=== PATIENT | female | born 1995 | race Caucasian/White ===

== ENCOUNTER 2017-07-03 14:55 | Inpatient (IN) | payer OTHER, MEDICAID, SELFPAY ==
[2017-07-03] MEDS: Lactated Ringers 1,000 ML 50 ML IV ×2 (15:40→21:53)
[2017-07-03 15:49] VITALS: BMI 25.4
[2017-07-03] MEDS: Oxytocin 30 units/NS 500 ml 30 UNITS/500 ML IV.SOLN IV (16:00)
[2017-07-03 16:10] LABS: Hematocrit 32.6 % (37-47); Hemoglobin 10.5 g/dl (12.0-15.0); Mean Corp Hgb Conc 32.2 g/gl (32-36); Mean Corpuscular Hgb 26.7 pg (27.0-32.0); Mean Platelet Vol. 11.4 fl (6.2-12.0); Platelet Count 149 K/mm3 (150-450); RBC Distribution Width CV 15.8 % (11.6-14.6); RBC Distribution Width SD 47.1 fl (35.1-43.9); Red Blood Count 3.93 M/mm3 (4.2-5.4); White Blood Count 9.4 K/mm3 (4.4-11.0)
[2017-07-03 16:13] LABS: Scan Indicated on CBC? Y/N NO
--- NOTE | 2017-07-03 19:17 | PCM.HP.OB ---
History Date of Admission: 07/03/17 Final NICHOLAS: 06/28/17 Final NICHOLAS Source: US <20 weeks Gestational age: 40 Weeks and 5 Days History of this : 21-year-old 1 para 0 female admitted at 40-5/7 weeks with spontaneous rupture of membranes. She denies any regular contractions. No vaginal bleeding. Good movement. Regnancy was uncomplicated to date other than she had an abnormal 1 hour GTT but she had a normal 3 hour. Past medical history : of abnormal Pap smear and right breast fibroadenoma Surgical history: wisdom tooth extraction Family medical history:noncontributory Allergies No Known Allergies Allergy (Verified 02/24/13 18:52) Current Medications Acetaminophen (Tylenol) 325 - 650 mg PO Q4H PRN PRN PRN Reason: PAIN OR FEVER >100.4F Al Hydroxide/Mg Hydroxide (Mylanta Ii) 15 - 30 ml PO Q4H PRN PRN PRN Reason: INDIGESTION Citric Acid/Sodium Citrate (Bicitra) 30 ml PO UD PRN Lactated Ringer's () 1,000 mls @ 50 mls/hr IV .Q20H [facility] Last Admin: 07/03/17 15:40 Dose: 50 mls/hr Oxytocin/Sodium Chloride () 30 units in 500 mls @ 1 mls/hr IV .Q500H [facility] Last Admin: 07/03/17 16:00 Dose: 1 mls/hr Nalbuphine HCl (Nubain) 5 - 10 mg IV Q3H PRN PRN PRN Reason: PAIN (4-10/10) Ondansetron HCl (Zofran) 4 mg IV Q8H PRN PRN PRN Reason: NAUSEA Promethazine HCl (Phenergan (Ll)) 6.25 - 12.5 mg IV Q4H PRN PRN; Protocol PRN Reason: IF NAUSEA PERSISTS Sodium Chloride () 5 - 15 ml IV UD [facility] Last Admin: 07/03/17 19:00 Dose: Not Given Smoking Status: Former smoker Alcohol: None Drug Use: none Number of Fetus(es): 1 Review of Systems Constitutional: Denies: Chills, Fever Cardiovascular: Denies: Chest Pain Respiratory: Denies: Cough Gastrointestinal: Denies: Abdominal Pain Skin: Denies: Rash Physical Exam General: Alert, Cooperative, No apparent distress Cardiovascular: Regular rate Lungs: Normal air movement Abdomen: Soft, Non-Distended, Gravid, Appropriate for Gestational Age Extremities:: No edema Estimated gestational size: Appropriate for gestational size Presentation: Cephalic Cervix Dilation (cm): 2.5 - medium consistency, mid position Station: -2 Effacement (%): 80 Assessment/Plan 21-year-old 1 para 0 at 40-5/7 weeks gestation with premature rupture of membranes 1. Estimated weight is less than 4500 g and pelvis is clinically adequate to expect vaginal delivery. Patient tires to attempt labor without an epidural. We discussed pain relief options. 2. premature rupture membranes -will induce labor with Pitocin as needed and titrate to labor
--- NOTE | 2017-07-03 19:25 | HP.PCM_ITS ---
History Date of Admission: 07/03/17 Final NICHOLAS: 06/28/17 Final NICHOLAS Source: US <20 weeks Gestational age: 40 Weeks and 5 Days History of this : 21-year-old 1 para 0 female admitted at 40-5/7 weeks with spontaneous rupture of membranes. She denies any regular contractions. No vaginal bleeding. Good movement. Regnancy was uncomplicated to date other than she had an abnormal 1 hour GTT but she had a normal 3 hour. Past medical history : of abnormal Pap smear and right breast fibroadenoma Surgical history: wisdom tooth extraction Family medical history:noncontributory Allergies No Known Allergies Allergy (Verified 02/24/13 18:52) Current Medications Acetaminophen (Tylenol) 325 - 650 mg PO Q4H PRN PRN PRN Reason: PAIN OR FEVER >100.4F Al Hydroxide/Mg Hydroxide (Mylanta Ii) 15 - 30 ml PO Q4H PRN PRN PRN Reason: INDIGESTION Citric Acid/Sodium Citrate (Bicitra) 30 ml PO UD PRN Lactated Ringer's () 1,000 mls @ 50 mls/hr IV .Q20H [facility] Last Admin: 07/03/17 15:40 Dose: 50 mls/hr Oxytocin/Sodium Chloride () 30 units in 500 mls @ 1 mls/hr IV .Q500H [facility] Last Admin: 07/03/17 16:00 Dose: 1 mls/hr Nalbuphine HCl (Nubain) 5 - 10 mg IV Q3H PRN PRN PRN Reason: PAIN (4-10/10) Ondansetron HCl (Zofran) 4 mg IV Q8H PRN PRN PRN Reason: NAUSEA Promethazine HCl (Phenergan (Ll)) 6.25 - 12.5 mg IV Q4H PRN PRN; Protocol PRN Reason: IF NAUSEA PERSISTS Sodium Chloride () 5 - 15 ml IV UD [facility] Last Admin: 07/03/17 19:00 Dose: Not Given Smoking Status: Former smoker Alcohol: None Drug Use: none Number of Fetus(es): 1 Review of Systems Constitutional: Denies: Chills, Fever Cardiovascular: Denies: Chest Pain Respiratory: Denies: Cough Gastrointestinal: Denies: Abdominal Pain Skin: Denies: Rash Physical Exam General: Alert, Cooperative, No apparent distress Cardiovascular: Regular rate Lungs: Normal air movement Abdomen: Soft, Non-Distended, Gravid, Appropriate for Gestational Age Extremities:: No edema Estimated gestational size: Appropriate for gestational size Presentation: Cephalic Cervix Dilation (cm): 2.5 - medium consistency, mid position Station: -2 Effacement (%): 80 Assessment/Plan 21-year-old 1 para 0 at 40-5/7 weeks gestation with premature rupture of membranes 1. Estimated weight is less than 4500 g and pelvis is clinically adequate to expect vaginal delivery. Patient tires to attempt labor without an epidural. We discussed pain relief options. 2. premature rupture membranes -will induce labor with Pitocin as needed and titrate to labor
[2017-07-04] MEDS: Lactated Ringers 1,000 ML 50 ML IV ×2 (01:30→04:15)
[2017-07-04] MEDS: Ondansetron 4 MG/2 ML Vial IV (04:10)
[2017-07-04] MEDS: Oxytocin 30 units/NS 500 ml 30 UNITS/500 ML IV.SOLN 334 UNITS IV (05:15)
[2017-07-04] MEDS: Oxytocin 30 units/NS 500 ml 30 UNITS/500 ML IV.SOLN 167 UNITS IV (05:35)
--- NOTE | 2017-07-04 05:40 | PCM.OB.VAG ---
Vaginal Delivery Maternal Presentation: Spontaneous Rupture of Membranes Method of Induction: Pitocin Medical Reason for Induction: Premature Rupture of Membranes Amniotic Membrane Rupture Type: Spontaneous Amniotic Fluid Description: Clear - then terminal meconium at delivery Final NICHOLAS: 06/28/17 Final NICHOLAS Source: US <20 weeks Gestational age: 40 Weeks and 6 Days Date of Procedure: 07/04/17 Pre-Operative Diagnosis: labor Post-Operative Diagnosis: same + mild shoulder dystocia and terminal meconium Surgery/ Procedure Performed: Spontaneous Vaginal Delivery Type of Anesthesia: Epidural Description of Procedure: A vigorous male was delivered ASIM over a second-degree perineal laceration. There is a mild shoulder dystocia. When the shoulders did not deliver immediately, the patient's legs were repositioned in a modified Cristian. I attempted quickly to deliver the anterior posterior shoulder. Neither delivered. Suprapubic pressure was then given. I rotated the anterior shoulder slightly forward and then the anterior shoulder delivered with gentle traction in the posterior shoulder delivered easily. The entire episode between delivery of the head and the shoulders with 60 seconds. The Pitocin infusion was initiated for active management of the third stage. The cord was clamped and cut immediately due to the presence of thick meconium-stained fluid. The baby was making respiratory effort but was not immediately vigorous so he was transported to the isolette for evaluation and stimulation. The was attended to by the waiting nursing staff. The patient care associate was called in. By the time she arrived the infant was vigorous. Apgars were 8 and 9. The placenta was delivered spontaneously and intact. The cervix and vagina were intact. The second-degree perineal laceration was repaired with 3-0 Vicryl suture in a running standard fashion. Sponge and needle counts were correct. A vaginal sweep was completed by me. Presentation: ASIM Placental Delivery Description: Spontaneous Placenta Disposition: [facility] Cord Vessel Description: 3 Vessels Cord Entanglement: None Drain: Resendez to straight drain Estimated Blood Loss: 450 A gender: Male (1 minute): 8 (5 minute): 9 Episiotomy Description: None Laceration: 2nd degree Medications given after delivery: IV Pitocin Complications: None
[2017-07-04] MEDS: 0.9% Saline Lock 10 ML Syringe IV (06:40)
[2017-07-04 08:35] VITALS: BP 118/75; PULSE 96; RESP 16; TEMP 36.3; O2SAT 100
[2017-07-04 12:00] VITALS: BP 111/72; PULSE 90; RESP 18; TEMP 36.2; O2SAT 100
[2017-07-04 16:21] VITALS: BP 119/66; PULSE 94; RESP 16; TEMP 36.4; O2SAT 99
--- NOTE | 2017-07-04 17:42 | NURSING ---
1600 While rounding, Mom has been doing a great job with feedings independently. Mom requesting an electric pump and is to be calling her insurance. Encouraged to call so we can observe latching. Bryan MANCIA
[2017-07-04 19:50] VITALS: BP 129/77; PULSE 69; RESP 16; TEMP 36.6; O2SAT 97
[2017-07-04] MEDS: Naproxen 250 MG Tablet PO (19:59)
[2017-07-04] MEDS: Dibucaine 30 GM Tube 1 APPLIC TOPICAL (21:48)
[2017-07-05 00:02] VITALS: BP 99/57; PULSE 60; RESP 16; TEMP 36.3; O2SAT 97
[2017-07-05 04:15] VITALS: BP 98/54; PULSE 60; RESP 16; TEMP 36.8; O2SAT 97
[2017-07-05 05:12] LABS: Hematocrit 24.1 % (37-47); Hemoglobin 7.8 g/dl (12.0-15.0); Mean Corp Hgb Conc 32.4 g/gl (32-36); Mean Corpuscular Hgb 27.4 pg (27.0-32.0); Mean Corpuscular Volume 84.6 fL (81-99); Mean Platelet Vol. 11.2 fl (6.2-12.0); Platelet Count 138 K/mm3 (150-450); RBC Distribution Width SD 47.1 fl (35.1-43.9); Red Blood Count 2.85 M/mm3 (4.2-5.4); White Blood Count 15.1 K/mm3 (4.4-11.0)
[2017-07-05 05:13] LABS: Scan Indicated on CBC? Y/N NO
--- NOTE | 2017-07-05 08:42 | PCM.PN.OB ---
Subjective: pain well controlled, average lochia, working on - Physical Exam General: Alert, Cooperative, No apparent distress Abdomen: Soft, Non-Distended Extremities: Edema - 1+ Vital Signs Temp Pulse Resp BP Pulse Ox 98.3 F 60 16 98/54 L 97 07/05/17 04:15 07/05/17 04:15 07/05/17 04:15 07/05/17 04:15 07/05/17 04:15 Oxygen Delivery Method Room Air Weight: 65.2 kg Body Mass Index (BMI) 25.4 Intake and Output for Last 24 Hours 07/03/17 07/04/17 07/05/17 23:59 23:59 23:59 Intake Total 4323 / 4323 Output Total 200 / 200 2850 / 2850 Balance -200 / -200 1473 / 1473 Laboratory Tests Past 24 Hrs 07/05/17 04:45 WBC 15.1 H RBC 2.85 L Hgb 7.8 L Hct 24.1 L MCV 84.6 MCH 27.4 MCHC 32.4 RDW 16.0 H RDW Differential 47.1 H Plt Count 138 L MPV 11.2 Assessment/Plan PPD#1 doing well working on
[2017-07-05 09:10] VITALS: BP 102/59; PULSE 66; RESP 16; TEMP 36.1
[2017-07-05] MEDS: Naproxen 250 MG Tablet PO (09:10)
[2017-07-05 13:30] VITALS: BP 102/58; PULSE 59; TEMP 36.2
[2017-07-05 20:05] VITALS: BP 125/61; PULSE 58; RESP 16; TEMP 36.2; O2SAT 99
[2017-07-06 02:55] VITALS: BP 112/70; PULSE 60; RESP 16; TEMP 36.2
[2017-07-06 09:10] VITALS: BP 107/72; PULSE 64; RESP 20; TEMP 36.2
[2017-07-06] MEDS: Naproxen 250 MG Tablet PO (09:28)
--- NOTE | 2017-07-06 10:14 | PCM.PN.OB ---
Subjective: pain well controlled, average lochia. Had BM - Physical Exam General: Alert, Cooperative, No apparent distress Vital Signs Temp Pulse Resp BP Pulse Ox 97.1 F L 60 16 112/70 99 07/06/17 02:55 07/06/17 02:55 07/06/17 02:55 07/06/17 02:55 07/05/17 20:05 Oxygen Delivery Method Room Air Weight: 65.2 kg Body Mass Index (BMI) 25.4 Intake and Output for Last 24 Hours 07/04/17 07/05/17 07/06/17 23:59 23:59 23:59 Intake Total 4323 / 4323 Output Total 2850 / 2850 Balance 1473 / 1473 Assessment/Plan PPD#2 ready for d/c and doing well
--- NOTE | 2017-07-06 10:16 | DCINST_ITS ---
Discharge Diet: No Restrictions Discharge Activity: Return to Normal Activity, May not drive while taking narcotic pain medications., May Shower May resume sexual activity in: 4-6 weeks Additional Activity Instructions:: Nothing in the vagina for 4-6 weeks. You may return to work/school in 6 weeks. Call your doctor if your incision/area has: Continuous Slow Oozing, Sudden Increased Bleeding, Increased Pain/ Swelling, Increased Redness, Foul Smelling Discharge Additional Instructions: If you experience any of the following, contact your healthcare provider. * Bleeding that soaks a pad every hour for 2 hours * Fever 100.4 or higher * Unrelieved incision or abdominal pain * Swelling, redness, discharge or bleeding from your incision or episiotomy site * Your incision begins to separate * Problems urinating (including inability to urinate or burning while urinating) . * Visual changes * Severe headache * Flu-like symptoms * Pain or redness in one of both of your breasts * Pain, warmth, tenderness or swelling in your legs, especially the calf area * Frequent nausea and vomiting * Symptoms of depression or anxiety If you experience any of the following, call 911 or go to the nearest Emergency Room. * Chest pain * Problems breathing * Seizure activity * Partial or complete paralysis of a body part, slurred speech, weakness or drooping of the face, or a sudden inability to walk or hold your balance Allergies/Adverse Reactions: Allergies No Known Allergies Allergy (Verified 02/24/13 18:52) Medications to take at Discharge Docosahexanoic Acid [ Dha] 07/03/17 Ibuprofen [Motrin] 600 mg PO Q6H PRN #60 tablet 07/06/17 The following prescriptions were given: Ibuprofen [Motrin] 600 mg PO Q6H PRN #60 tablet PRN Reason: Pain Please Follow Up With: Gissel Cristobal MD - [phone] When: Call to make an appointment with your doctor in 6 weeks. If you had elevated Blood Pressure or 4th degree laceration you will need to be seen in 2 weeks. Primary Care Physician: Care Physician,No Primary [Primary Care Provider] -
[2017-07-06 14:00] VITALS: BP 108/64; PULSE 64; TEMP 36.2
== END 2017-07-06 14:15 | disposition home or self-care (01) | DRG 775 ==
PROVIDERS: Admitting Provider Obstetrics & Gynecology; Visit Provider Obstetrics & Gynecology
DX: O42.92 Full-term premature rupture of membranes, unspecified as to length of time between rupture and onset of labor (principal); O66.0 Obstructed labor due to shoulder dystocia; O70.1 Second degree perineal laceration during delivery; O77.0 Labor and delivery complicated by meconium in amniotic fluid; Z87.891 Personal history of nicotine dependence; Z3A.40 40 weeks gestation of pregnancy; Z37.0 Single live birth
CPT/HCPCS: 59025; 59050; 85027; 86850; 86900; 99218; J7120; A4216; G0378; J2405

== ENCOUNTER 2017-12-07 06:47 | Observation (INO) | payer OTHER, MEDICAID, SELFPAY ==
[2017-12-07] VITALS (12 sets, daily range): BP systolic 91–112; BP diastolic 49–72; PULSE 56–89; RESP 16–18; TEMP 37–37.7; O2SAT 96–99; BMI 18.0; BMI 19.2; BMI 18.1
--- NOTE | 2017-12-07 07:35 | APP_PTH ---
PATIENT: ROCKY AMIN LOC: [facility] U#:[id number] AGE/SX: 22/F ROOM: [facility]321 RE12/07/[address]: Dr. Viridiana Guerrero MD : 1995 BED: 1 DIS: 12/08/2017 SPEC #: [id number] RECD: 12/08/17 10:20 STATUS: CARMINA REQ #: [id number] ANGELO: 12/07/17 07:[address]: Viridiana Guerrero DEPT: SURGICAL PATHOLOGY RECD BY: Jayden Ordonez ENTERED: 12/08/17 11:21 SP TYPE: APPENDIX OT DR: No Primary Care Phys Tissues: Appendix, NOS Procedures: Surgery Specimen Level III HEADER OPERATION: Laparoscopic appendectomy PRE-OP DIAGNOSIS: Acute appendicitis TISSUE SUBMITTED: Appendix MICROSCOPIC DIAGNOSIS Appendix: Acute appendicitis and periappendicitis. SJ:jak 12/11/17 MICROSCOPIC DESCRIPTION Slides are reviewed. GROSS DESCRIPTION Received is one container labeled with the patient's name and designated appendix. The specimen consists of a vermiform appendix measuring 7 cm in length and 1 cm in average diameter. No gross perforations are evident. Sections reveal fecal material. Benzene [employer] Utility Operator sections are submitted in one cassette. / AM:jak 12/08/17 TC:2 CPT: 37221
--- NOTE | 2017-12-07 08:02 | CT_ITS ---
STUDY: CT ABDOMEN AND PELVIS WITH CONTRAST REASON FOR EXAM: Female, 22 years old. Right lower quadrant abdominal pain. RADIATION DOSAGE (If Supplied By Facility): CTDIvol = ( 7.36 ) mGy, DLP = ( 219.62 ) mGycm TECHNIQUE: Transaxial images were obtained from the dome of the diaphragm to the symphysis pubis with oral contrast. 80 ml of Isovue 300 contrast was administered. Sagittal and coronal images were reconstructed. Individualized dose optimization techniques were used for this CT. COMPARISON: Prior comparison studies are not available for review at this time. FINDINGS: The visualized lung bases are unremarkable. The visualized portions of the heart are within normal limits. Normal liver. Normal gallbladder and extrahepatic biliary system. There is mild splenomegaly. Normal pancreas. Normal bilateral adrenal glands. Normal right kidney. Normal left kidney. Normal visualized stomach. There is no evidence for dilated bowel, ascites or pneumoperitoneum. The small bowel has a normal appearance. Enteric contrast is visible throughout the colon. There is non-visualization of the appendix. Normal abdominal aorta. There is venous distention of the inferior vena cava (IVC). Normal retroperitoneum. Normal urinary bladder. Normal visualized uterus. Uterus appears retroflexed. Normal abdominal wall. Normal osseous structures. CT/Abdomen/Pelvis WITH Contrast IMPRESSION: No CT evidence of acute intra-abdominal disease. Electronically Signed: Heidy De Jesus MD at 9:39 EDT , Service support ,
[2017-12-07 08:03] LABS: ALB/GLOB Ratio 1.1 RATIO (0.9-2.4); AST(SGOT) 19 U/L (15-37); Alanine Aminotransfer ALT/SGPT 23 U/L (13-56); Alkaline Phosphatase 99 U/L (45-117); Anion Gap 11 (5-15); BUN 13 mg/dL (7-18); BUN/Creat Ratio 18.6 RATIO (10-20); Calcium,Total 8.8 mg/dL (8.5-10.1); Chloride 104 mmol/L (98-107); EST Glomerular Filtration Rate 109 mL/min (>60); Est Glom Filt Rate - Afr Amer 132 mL/min (>60); Globulin 3.5 g/dL (2.2-4.2); Glucose 82 mg/dL (74-106); Lipase 103 U/L (73-393); Potassium 3.9 mmol/L (3.5-5.1); Protein, Total 7.5 g/dL (6.4-8.2); Sodium Level 139 mmol/L (136-145)
--- NOTE | 2017-12-07 08:03 | ED.RN ---
see down time down charting for patient care
[2017-12-07 08:16] LABS: Red Blood Cells-Urine 0 SEEN /hpf (0-5)
[2017-12-07 08:17] LABS: Internal QC Validated? YES +Cl - CLEAR BKGD; Pregnancy, Urine Negative Negative
[2017-12-07 08:18] LABS: Color, Urine Yellow (Yellow); Glucose, Dipstick NEGATIVE (Normal); Urine Bilirubin Dipstick Negative (Negative); Urine Clarity Clear (Clear)
[2017-12-07 08:19] LABS: Ketone-Dipstick 150 mg/dl (Negative); Leukocyte Esterase-Dipstick Negative /ul (Negative); Nitrite-Dipstick Negative (Negative); Occult Blood-Urine Negative /ul (Negative); Protein-Dipstick Negative (Negative); Specific Gravity, Urine 1.015 (1.002-1.030); Squamous Epithelial Cells - UA 0-5 SEEN /hpf (5-10); Urine Urobilinogen Normal (Normal); White Blood Cells 0-5 SEEN /hpf (0-5)
[2017-12-07 08:20] LABS: Bacteria 2+ /hpf (None Seen); Mucous, Urine 1+ /hpf (<or=2+)
--- NOTE | 2017-12-07 08:31 | ED.DCSUM_ITS ---
- ER Visit Summary Date of Service: 12/07/17 Chief Complaint: Abdominal pain History of Present Illness: The patient is a 22 F with abdominal pain that started 8 hours ago. No fever or chills. No chest pain shortness of breath. She did have an upper respiratory infection about 3 days ago. Pain is described as achy. She does not have any nausea vomiting or diarrhea with this. No vaginal bleeding. In fact she has not had any normal menstrual cycle , she is 5 months and nursing. Physical Examination: Not appear in acute distress. Moist mucous membranes, no obvious facial deformity No C-spine tenderness supple neck. Regular rate and rhythm without any obvious murmurs Clear lungs bilaterally speaking in full sentences without any obvious respiratory distress Abdomen soft most of the tenderness is right lower quadrant, no obvious guarding or rebound. There is no pelvic pain. Moves all extremities without any difficulty or pain. Skin does not show any obvious rashes or lesions, no trauma. Alert oriented ?3 with no gross focal deficit Emergency Department Course and Treatment: Patient has a normal white count. She has a normal CT of the abdomen and pelvis with p.o. and IV contrast. I reevaluated her, she still has some right lower quadrant pain, it is not pelvic it is mostly in the abdomen. She has no guarding or rebound. I told her that there is still a possibility of early appendicitis and she needs a repeat evaluation in the next 12-24 hours, however sooner if she has fever chills or worsening pain. She understands this, she has no PCP I will refer her, however I told her it is prudent to come back to the emergency department she understands that and localizes it back to me. Addendum: Had a call from the radiologist, indeed it is an acute appendicitis. Zosyn was given and patient will be admitted for surgery. Disposition: Admit 12-24 for surgery Impression: Appendicitis This note was generated with [employer] dictation software. It may contain incorrect words, spelling, and punctuation that were not noted in review of the chart prior to signing ED Disposition - Plan for ED Patient: Disposition: Home or Assisted Living Chief Complaint: Abd Pain Diagnosis: Abdominal pain Instructions: ED Abdominal Pain Poss Appendx Nb Referrals: Howard Garcia MD [[facility]] - 3-5 Days Additional Instructions: You Need a repeat abdominal evaluation in the next 12-24 hours. If you have fever chills or worsening symptoms need to return to the emergency department sooner.
[2017-12-07 09:08] LABS: Absolute Lymphocyte Count 1.35 X10^3/ul (0.83-4.51); Absolute Neutrophil Count 4.6 X10^3/uL (2.0-7.7); Basophil# 0.01 X10^3/uL; Basophil% 0.1 % (0-1); Eosinophil# 0.06 X10^3/uL; Eosinophils% 0.9 % (0-5); Hematocrit 40.9 % (37-47); Hemoglobin 13.4 g/dl (12.0-15.0); Lymphocyte # 1.35 X10^3/ul (4.0); Mean Corp Hgb Conc 32.8 g/gl (32-36); Mean Corpuscular Hgb 26.7 pg (27.0-32.0); Mean Corpuscular Volume 81.5 fL (81-99); Monocyte# 0.72 X10^3/uL; Monocyte% 10.7 % (0-10); Neutrophil % 68.3 % (47-70); Platelet Count 165 K/mm3 (150-450); RBC Distribution Width CV 16.3 % (11.6-14.6); RBC Distribution Width SD 49.3 fl (35.1-43.9); Red Blood Count 5.02 M/mm3 (4.2-5.4); White Blood Count 6.7 K/mm3 (4.4-11.0)
[2017-12-07 09:09] LABS: POSITIVE COUNT NO; POSITIVE DIFFERENTIAL NO; POSITIVE MORPHOLOGY NO
--- NOTE | 2017-12-07 10:01 | ED.VISSUMM ---
- ER Visit Summary Date of Service: 12/07/17 Chief Complaint: [] History of Present Illness: The patient is a 22 F [] Physical Examination: [] Test Results: [] Emergency Department Course and Treatment: [] Treatment Plan: [] Disposition: [] Impression: [] This note was generated with [employer] dictation software. It may contain incorrect words, spelling, and punctuation that were not noted in review of the chart prior to signing ED Disposition - Plan for ED Patient: Disposition: [facility] Chief Complaint: Abd Pain Diagnosis: Abdominal pain Instructions: ED Abdominal Pain Poss Appendx Nb Referrals: Howard Garcia MD [[facility]] - 3-5 Days Additional Instructions: You Need a repeat abdominal evaluation in the next 12-24 hours. If you have fever chills or worsening symptoms need to return to the emergency department sooner.
--- NOTE | 2017-12-07 13:02 | PCM.HP.STD ---
History of Present Illness Date of Admission: 12/07/17 Chief Complaint: Acute appendicitis The patient is a 22 year old F presented to the ER due to abdominal pain started yesterday at 2-3 PM. Patient states previous to that about 2 days ago she did have a fever of 102 which went away and she had no abdominal pain at that time. But she did go to urgent care and was sent home. She did discuss her abdominal pain with urgent care and they recommended her to go to the ER. Initially patient CT abdomen pelvis was not noted to have a dilated appendix for acute appendicitis however this was discussed with Dr. Tripp and he agreed that looked like acute appendicitis. Patient was subsequently called back to the ER. Patient's white blood count was within normal limits, denies nausea or vomiting loss had a small bowel movement yesterday last time she ate was yesterday per the patient. Denies ever having similar pain like this before-she rates the pain prior to coming to the ER 7 out of 10, which initially was across her lower abdomen and has localized now in the right lower quadrant. Patient currently is getting Zosyn IV in the ER. Past Medical History Allergies No Known Allergies Allergy (Verified 02/24/13 18:52) Home Medications: Ambulatory Orders Medication Instructions Recorded Docosahexanoic Acid [ Dha] 07/03/17 Ibuprofen [Motrin] 600 mg PO Q6H PRN #60 tablet 07/06/17 Smoking Status: Former smoker Review of Systems Constitutional: Reports: Anorexia, Fever - 2 days ago none recent Eyes: Denies: Blurred vision HEENT: Denies: Difficulty Swallowing Cardiovascular: Denies: Chest Pain Respiratory: Denies: Shortness of breath at rest Gastrointestinal: Reports: Abdominal Pain. Denies: Nausea, Vomiting Genitourinary: Denies: Dysuria VTE Information - Inpt Only VTE Present on Admission: Yes VTE Mechan Device Prophylaxis: SCD's VTE Pharm Prophylaxis ordered?: No Reason prophylaxis not ordered:: Treatment Not Indicated - Physical Exam General: Alert, Oriented x3, Cooperative, No apparent distress HEENT: Atraumatic, Normocephalic Lungs: Clear to auscultation Cardiovascular: Regular rate, Regular Rhythm Abdomen: Soft, Non-Distended, Tender - Tender in the right lower quadrant no guarding or rebound Extremities: No clubbing, No cyanosis, No edema Vital Signs Temp Pulse Resp BP Pulse Ox 99.9 F H 79 16 111/71 97 12/07/17 12:15 12/07/17 12:15 12/07/17 12:15 12/07/17 12:15 12/07/17 12:15 Oxygen Delivery Method Room Air Weight: 102 lb Body Mass Index (BMI) 18.0 Laboratory Tests Past 24 Hrs 12/07/17 12/07/17 12/07/17 06:30 07:15 07:19 WBC 6.7 RBC 5.02 Hgb 13.4 Hct 40.9 MCV 81.5 MCH 26.7 L MCHC 32.8 RDW 16.3 H RDW Differential 49.3 H Plt Count 165 MPV 11.0 Immature Gran % (Auto) 0.000 Neut % (Auto) 68.3 Lymph % (Auto) 20.0 [place] % (Auto) 10.7 H Eos % (Auto) 0.9 Baso % (Auto) 0.1 Absolute Neuts (auto) 4.6 Absolute Lymphs (auto) 1.35 Total Counted Not Reportable Sodium 139 Potassium 3.9 Chloride 104 Carbon Dioxide 24.0 Anion Gap 11 BUN 13 Creatinine 0.70 Est GFR (MDRD) Af Amer 132 Est GFR (MDRD) Non-Af 109 BUN/Creatinine Ratio 18.6 Glucose 82 Calcium 8.8 Total Bilirubin 1.00 AST 19 ALT 23 Alkaline Phosphatase 99 Total Protein 7.5 Albumin 4.0 Globulin 3.5 Albumin/Globulin Ratio 1.1 Lipase 103 Urine Color Urine Clarity Urine pH Ur Specific [place] Urine Protein Urine Glucose (UA) Urine Ketones Urine Occult Blood Urine Nitrite Urine Bilirubin Urine Urobilinogen Ur Leukocyte Esterase Urine RBC Urine WBC Ur Squamous Epith Cells Urine Bacteria Urine Mucus Urine Test Negative 12/07/17 07:25 WBC RBC Hgb Hct MCV MCH MCHC RDW RDW Differential Plt Count MPV Immature Gran % (Auto) Neut % (Auto) Lymph % (Auto) [place] % (Auto) Eos % (Auto) Baso % (Auto) Absolute Neuts (auto) Absolute Lymphs (auto) Total Counted Sodium Potassium Chloride Carbon Dioxide Anion Gap BUN Creatinine Est GFR (MDRD) Af Amer Est GFR (MDRD) Non-Af BUN/Creatinine Ratio Glucose Calcium Total Bilirubin AST ALT Alkaline Phosphatase Total Protein Albumin Globulin Albumin/Globulin Ratio Lipase Urine Color Yellow Urine Clarity Clear Urine pH 6.0 Ur Specific [place] 1.015 Urine Protein Negative Urine Glucose (UA) NEGATIVE Urine Ketones 150 H Urine Occult Blood Negative Urine Nitrite Negative Urine Bilirubin Negative Urine Urobilinogen Normal Ur Leukocyte Esterase Negative Urine RBC 0 SEEN Urine WBC 0-5 SEEN Ur Squamous Epith Cells 0-5 SEEN Urine Bacteria 2+ Urine Mucus 1+ Urine Test Assessment/Plan All Active Problems Abdominal pain (Acute) 22-year-old female with acute appendicitis 1. Discussed procedure laparoscopic appendectomy, possible open, possible bowel resection along with the risk but not limited to bleeding, infection/abscess, injury to another organ (small bowel, colon, etc.), adhesion, hernia at incision sites, and anesthesia. Viridiana Guerrero M.D. Pager: [phone] [facility] [address] [place] [address], [address] [place] [address] Office: [phone]
--- NOTE | 2017-12-07 13:29 | ED.RN ---
CALLED REPORT TO ARNOL MANCIA IN [facility]. DENIES QUESTIONS. STATES PT CAN COME DOWN NOW. PT TRANSFERRED IN ED BED BY [facility] TO [facility].
[2017-12-07] MEDS: Bupiv/Epi 0.5% Mpf 30 ML Vial (17:23)
--- NOTE | 2017-12-07 17:28 | OP.PCM_ITS ---
Report of Operation Date of Procedure: 12/07/17 Pre-Operative Diagnosis: Acute appendicitis Post-Operative Diagnosis: Same Surgery/Procedure Performed:: Laparoscopic appendectomy Type of Anesthesia:: General/Supplemental Anesthesiologist: Chucky Mota Special Medications: Previously given Zosyn 4.5 g for acute appendicitis in the ER Estimated Blood Loss (mL): <20 cc Fluids Replaced: 1400 cc Description of Procedure: Indications: 22-year-old female presented to the ER with new right lower quadrant pain this morning. On workup she was found to have acute appendicitis on CT and normal white blood cell count of 6. Patient was started on antibiotics in the ER for acute appendicitis-Zosyn 4.5 g IV ?1 Description of the procedure: The patient was placed on operating table in supine position. General anesthesia was induced. A timeout was completed verifying correct patient, procedure, sacrum position and special, prior to beginning procedure. A Resendez catheter and orogastric tube placed. Abdomen was prepped and draped in usual sterile fashion. Curvilinear incision was made below the umbilicus with a 15 blade scalpel. The fascia was elevated and incised. Entry into the peritoneum was confirmed visually and no bowel was noted in the vicinity of the incision. The Matamoros trocar was placed under direct vision. Abdomen insufflated with a pressure of 12-15 mmHg. Patient tolerated insertion well. The scope was inserted and the abdomen inspected. No injuries from initial trocar placement were noted. Minimal amount of fluid was seen in the right lower quadrant. An direct visualization 2 -5 mm trocars were placed one above the symptoms his pubis and below the hairline and one in the left lower quadrant lateral to the rectus muscle. Care is taken to avoid injury to the bladder and inferior epigastric vessels. The table was placed in Trendelenburg position with the right side elevated. The appendix was grasped with atraumatic grasper and elevated. It was noted to be inflamed. A window was developed in the mesoappendix at the point between the base of the appendix and the cecum. An endoscopic 45 mm linear cutting stapler blue load was then used to divide and staple the base of the appendix. The Enseal was used to divide the mesoappendix. The appendix was withdrawn into the Matam[place]os trocar after being placed endoscopically retrieval bag. Appendix was sent to pathology. The appendiceal stump was then irrigated and hemostasis was assured. Fluid was suctioned no other pathology was identified. Secondary trochars were removed under direct visualization. No bleeding was noted trocar sites. The laparoscope withdrawn and the umbilical trocar removed. The abdomen was allowed to collapse. Local anesthesia of 20 mL of 0.5 % Marcaine was used at the incision sites. The umbilical trocar site was closed with the [id number] 0 Vicryl suture. The skin was closed up to interrupted sutures of 4-0 Monocryl and Steri-Strips. The patient was extubated. The patient tolerated the procedure well and was taken to the postanesthesia care unit in satisfactory condition. - Complications none
--- NOTE | 2017-12-07 17:29 | PCM.DC.APPY ---
Discharge Diet: Light diet - advance as tolerated Discharge Activity: May not drive while taking narcotic pain medications. May shower in (days): 2 Lifting Restrictions: No lifting greater than 20 pounds ?4 weeks Call your doctor if your incision/area has: Continuous Slow Oozing, Sudden Increased Bleeding, Increased Pain/ Swelling, Increased Redness, Foul Smelling Discharge, Swelling at the incision site Call your doctor if you observe: Fever of 101 or Higher Remove Dressing in (days):: 3 - Keep umbilical dressing in place for 3 days okay to remove others tomorrow Instructions: ED Abdominal Pain Poss Appendx Nb Additional Instructions: Okay to take ibuprofen along with the Clayton. Avoid Tylenol since there is artery Tylenol in the Clayton. Clayton can cause constipation recommend taking daily stool softener i.e. Colace while taking the pain meds. Recommend starting some MiraLAX today if no bowel movement. If still no bowel movement tomorrow recommend taking magnesium citrate half the bottle and waiting 4-6 hours if still no results take the other half the bottle. Medications to take at Discharge Docosahexanoic Acid [ Dha] 07/03/17 Ibuprofen [Motrin] 600 mg PO Q6H PRN #60 tablet 07/06/17 Hydrocodone Bitart/Apap 5-325 [Clayton 5MG-325MG] 1 - 2 tablet PO Q6H PRN PRN 4 Days #25 tablet 12/07/17 Allergies/Adverse Reactions: Allergies No Known Allergies Allergy (Verified 02/24/13 18:52) Primary Care Physician: Howard Garcia MD [[facility]] - 3-5 Days Test Results: Test results from this visit will be discussed in further detail at your follow-up appointment, if applicable. Please Follow Up With: Viridiana Guerrero MD - Call [phone] with any concerns after 5 PM or the weekends. When: Call for a follow-up appointment 2 weeks office number is [phone] Proposed Discharge Date: 12/07/17
[2017-12-07] MEDS: Lactated Ringers 1,000 ML 120 ML IV (19:55)
[2017-12-07] MEDS: Ketorolac 15 MG/ML Vial IV (23:55)
[2017-12-08 04:50] VITALS: BP 97/49; PULSE 53; RESP 16; TEMP 36.7; O2SAT 100
--- NOTE | 2017-12-08 08:09 | PCM.PN.SRG ---
Subjective: Patient is doing well on your Toradol for pain states her previous right lower quadrant pain before surgery is gone, tolerating diet and ambulating - Physical Exam General: Alert, Oriented x3, Cooperative, No apparent distress Abdomen: Soft, Passing Flatus, Distended - Mild, Tender - Appropriately her incisions, incisions dressed clean dry and intact Extremities: No clubbing, No cyanosis, No edema Vital Signs Temp Pulse Resp BP Pulse Ox 98.0 F 53 L 16 97/49 L 100 12/08/17 04:50 12/08/17 04:50 12/08/17 04:50 12/08/17 04:50 12/08/17 04:50 Oxygen Delivery Method Room Air Weight: 108 lb 11.006 oz Body Mass Index (BMI) 19.2 Intake and Output for Last 24 Hours 12/06/17 12/07/17 12/08/17 23:59 23:59 23:59 Intake Total 870 / 870 Output Total 2300 / 2300 Balance -1430 / -1430 Medical Necessity - Tobacco Use Smoking Status: Former smoker Tobacco Use: Non-smoker Assessment/Plan 22-year-old female status post laparoscopic appendectomy postop day 1 1. Patient is doing well tolerating diet and ambulating. Patient states her pain is controlled without narcotics currently. Okay to DC home and follow-up in 2 weeks. Viridiana Guerrero M.D. Pager: [phone] [facility] [address] [place] [address], [address] [place] [id number] Office: [phone]
[2017-12-08] MEDS: Docusate Sodium 100 MG Capsule PO (08:29)
[2017-12-08 08:30] VITALS: BP 97/61; PULSE 54; RESP 18; TEMP 36.8; O2SAT 100
== END 2017-12-08 10:29 | disposition home or self-care (01) ==
LOC: ED 10:00 → SDC 13:22 → MS3 14:01 → SDC 19:53
PROVIDERS: Admitting Provider Surgery; Emergency Provider Emergency Medicine; Visit Provider Surgery
PROC: 0DTJ4ZZ Resection of Appendix, Percutaneous Endoscopic Approach (ICD-10-PCS; CPT 44970; principal; 2017-12-07 07:15)
DX: K35.80 Unspecified acute appendicitis (principal); Z87.891 Personal history of nicotine dependence
CPT/HCPCS: 00840; 44970; 74177; 80053; 81001; 81025; 83690; 85025; 88304; 96361; 96374; 99218; 99282; J7030; J7120; Q9967; A4216; C1760; G0378; J2405

== ENCOUNTER 2018-05-21 15:16 | Emergency (ER) | payer OTHER, MEDICAID, SELFPAY ==
[2018-05-21 15:17] VITALS: BP 88/61; PULSE 120; RESP 16; TEMP 37.4; O2SAT 99; BMI 17.5
--- NOTE | 2018-05-21 15:28 | RAD_ITS ---
STUDY: X-RAY CHEST REASON FOR EXAM: Female, 22 years old. Cough, fever TECHNIQUE: PA and lateral views of the chest. COMPARISON: None. FINDINGS: There is a right lower lobe pulmonary nodule measuring 4.7 mm. This accompanies minimal linear density within the right middle lobe. There is no demonstrated pleural abnormality. Normal size heart. Normal mediastinum and aron. Normal visualized pulmonary arteries. Normal visualized aortic arch and descending thoracic aorta. Normal visualized thoracic spine. Normal visualized ribs, clavicles, and shoulders. There is no demonstrated abnormality of the visualized soft tissue structures of the upper abdomen. RAD/Chest PA and Lateral IMPRESSION: Small nodule right middle lobe seen on the PA and lateral view. This may represent a small focus of inflammatory change infiltrate or possible prior granulomatous disease. Electronically Signed: Cristina Alvarado MD at 16:18 EST Tel , Service support ,
--- NOTE | 2018-05-21 15:29 | ED.VISSUMM ---
- ER Visit Summary Date of Service: 05/21/18 Chief Complaint: Fever History of Present Illness: The patient is a 22 F who presents with a fever as well as cough. Is been ongoing for 2 days. Her temperature is 103.8?F at home. She feels achy. She has had a cough and stuffy nose. She did have vomiting last night. She did not get a flu shot this year. She went to an urgent care and they did no testing and told her it was just a virus. She took Tylenol about 3 hours ago. She denies any sore throat. Denies any dysuria. Physical Examination: Vital signs reviewed. HEENT exam unremarkable. Heart is tachycardic and regular rhythm without murmurs. Lungs are clear to auscultation. Abdomen is soft and nontender. Extremities reveal no edema. Skin exam normal. Neurologic exam normal. Test Results: Influenza positive. Chest x-ray reveals a small nodular area which could represent an infiltrate or infectious process per radiology. Emergency Department Course and Treatment: Patient was given Motrin here. I will give her a azithromycin and Tamiflu for home. She will follow-up with her PCP Treatment Plan: [] Disposition: Discharge Impression: Community acquired pneumonia, influenza This note was generated with [employer] dictation software. It may contain incorrect words, spelling, and punctuation that were not noted in review of the chart prior to signing ED Disposition - Plan for ED Patient: Chief Complaint: Fever Referrals: Care Physician,No Primary [Primary Care Provider] -
[2018-05-21] MEDS: Ibuprofen 600 MG Tablet PO (15:49)
--- NOTE | 2018-05-21 17:14 | ED.DEP ---
ED Disposition - Plan for ED Patient: Disposition: Home or Assisted Living Chief Complaint: Fever Instructions: ED Flu Prescriptions: Azithromycin [Zithromax Z-Paulo] 250 mg PO UD #1 box Oseltamivir Phosphate [Tamiflu] 75 mg PO BID #10 cap Referrals: Care Physician,No Primary [Primary Care Provider] -
[2018-05-21 17:20] VITALS: BP 90/55; PULSE 98; RESP 18; O2SAT 98
== END 2018-05-21 17:21 | disposition home or self-care (01) ==
PROVIDERS: Emergency Provider Emergency Medicine
DX: J18.9 Pneumonia, unspecified organism (principal); J11.1 Influenza due to unidentified influenza virus with other respiratory manifestations
CPT/HCPCS: 71046; 87804; 99283